=== PATIENT | male | born 1950 | race Caucasian/White ===

== ENCOUNTER → 2018-11-24 | Outpatient (CLI) | payer OTHER, SELFPAY ==
[2018-11-24 18:28] LABS: Amphetamine Urine VISTA NEGATIVE (<1000 ng/mL); Barbiturate Urine VISTA NEGATIVE (< 200 ng/mL); Benzodiazepine Urine VISTA NEGATIVE (< 200 ng/mL); Cocaine Urine VISTA NEGATIVE (< 300 ng/mL); Ecstacy Urine VISTA NEGATIVE (< 500 ng/mL); Methadone Urine VISTA NEGATIVE (< 300 ng/mL); PCP Urine VISTA NEGATIVE (< 25 ng/mL); THC Urine VISTA NEGATIVE (< 50 ng/mL); Vista UDS pH Range 5
== END | disposition home or self-care (01) ==
LOC: MTLAB 16:22
PROVIDERS: Family Provider Preventive Medicine Occupational Medicine; PCP Preventive Medicine Occupational Medicine; Referring Provider Internal Medicine Pulmonary Disease; Visit Provider Internal Medicine Pulmonary Disease
DX: G47.10 Hypersomnia, unspecified (principal)
CPT/HCPCS: 80307

== ENCOUNTER → 2018-12-17 | Outpatient (CLI) | payer OTHER, SELFPAY ==
[2018-12-17 18:12] LABS: Amphetamine Urine VISTA NEGATIVE (<1000 ng/mL); Barbiturate Urine VISTA NEGATIVE (< 200 ng/mL); Benzodiazepine Urine VISTA NEGATIVE (< 200 ng/mL); Cocaine Urine VISTA NEGATIVE (< 300 ng/mL); Ecstacy Urine VISTA NEGATIVE (< 500 ng/mL); Methadone Urine VISTA NEGATIVE (< 300 ng/mL); PCP Urine VISTA NEGATIVE (< 25 ng/mL); THC Urine VISTA NEGATIVE (< 50 ng/mL); Vista UDS pH Range 6
== END | disposition home or self-care (01) ==
PROVIDERS: Referring Provider Internal Medicine Pulmonary Disease; Visit Provider Internal Medicine Pulmonary Disease
DX: G47.33 Obstructive sleep apnea (adult) (pediatric) (principal); G47.12 Idiopathic hypersomnia without long sleep time
CPT/HCPCS: 80307

== ENCOUNTER 2020-06-29 12:42 | Day surgery (SDC) | payer OTHER, MEDICARE, SELFPAY ==
[2020-06-29] VITALS (8 sets, daily range): BP systolic 84–130; BP diastolic 63–84; PULSE 91–97; RESP 16–18; TEMP 36.3–36.6; O2SAT 94–97; BMI 27.8
[2020-06-29] MEDS: Lactated Ringers 1,000 ML 100 ML IV ×2 (12:45→14:52)
--- NOTE | 2020-06-29 13:00 | FOR_PTH ---
PATIENT: DMITRI [place]ENDERSON [place] [facility] [place][id number] AGE/SX: 70/M ROOM: RE06/29/[address]: Dr. Ryley Andrade MD : 1950 BED: DIS: 06/29/2020 SPEC #: [id number] RECD: 06/30/20 06:30 STATUS: BHANU GOLDSTEIN #: [id number] BENIGNO: 06/29/20 13:[address]: Ryley Andrade DEPT: SURGICAL PATHOLOGY RECD BY: Myranda Valderrama ENTERED: 06/30/20 08:33 SP TYPE: FORESKIN OTHR DR: Dr. Brandi Huddleston, DO Tissues: Skin of foreskin, NOS Procedures: Surgery Specimen Level III HEADER OPERATION: Circumcision PRE-OP DIAGNOSIS: Paraphimosis TISSUE SUBMITTED: Foreskin MICROSCOPIC DIAGNOSIS Foreskin, circumcision: Acute and chronic inflammation. No evidence of dysplasia. AM:raphael 07/03/2020 MICROSCOPIC DESCRIPTION Slides are reviewed. GROSS DESCRIPTION Received in fixative is one container labeled with the patient's name and designated foreskin. The specimen consists of a glistening fragment of palomino mucosa with attached submucosal tissue measuring 9 x 5.5 x 0.8 cm. No mass lesions are identified. Diagnostic Imaging Manager sections are submitted in one cassette. / AM:raphael 06/30/20 TC:2 CPT: 32667
[2020-06-29 13:30] LABS: Bedside Glucose 126 mg/dL (70-110)
[2020-06-29] MEDS: Cefazolin 2 GM in 0.9% Normal Saline 100 ML IV (13:43)
[2020-06-29] MEDS: Bupivacaine Mpf 0.5% 30 ML VIAL (13:53)
--- NOTE | 2020-06-29 14:33 | HP.PCM_ITS ---
HPI - General HPI Narrative DMITRI HENDERSON, is a 70 M who presents with paraphimosis and acute and not reducible either taken to the operating room today emergently for circumcision [facility] Medical History (Updated 06/29/20 @ 14:[address] Ryley Andrade MD) Diabetes Hypertension Sleep apnea Home Medications Jardiance 10 mg PO DAILY 06/29/20 [History Last Taken 06/29/20 09:00] atorvastatin 40 mg PO DAILY 06/29/20 [History Last Taken Unknown] cephalexin [Keflex] 750 mg PO BID #10 cap 06/29/20 [Rx Last Taken Unknown] glipizide 20 mg PO BID 06/29/20 [History Last Taken 06/29/20 09:00] lisinopril 20 mg PO DAILY 06/29/20 [History Last Taken 06/29/20 09:00] metformin 1,000 mg PO BID 06/29/20 [History Last Taken 06/29/20 09:00] metoprolol tartrate 12.5 mg PO BID 06/29/20 [History Last Taken 06/29/20 09:00] oxycodone-acetaminophen [Percocet] 1 tab PO Q6H PRN 7 Days #14 tab 06/29/20 [Rx Last Taken Unknown] Allergy/AdvReac Type Severity Reaction Status Date / Time No Known Allergies Allergy Verified 06/29/20 13:14 Social History Smoking Status: Never smoker Vital Signs Vital Signs Vital Signs: 06/29/20 13:20 06/29/20 13:23 Temperature 97.6 F L Temperature Source Temporal Pulse Rate 94 Respiratory Rate 16 Respiratory Pattern Normal Blood Pressure 126/74 H Blood Pressure Mean 91 Blood Pressure Source Monitor Blood Pressure Position Semi-Fowlers Blood Pressure Location Right Arm Pulse Ox 97 Oxygen Delivery Method Room Air Physical Exam Const alert and oriented x3 General Appearance: cooperative HEENT normocephalic, head/scalp atraumatic, EAC's normal and TM's normal bilaterally Eyes PERRL and EOMs intact bilaterally Pupil: sluggish Neck no lymphadenopathy, supple and no JVD General: trachea midline Lymph Lymphatic: no lymphadenopathy noted, lymphedema and lymphadenopathy Resp normal respiratory effort, normal air movement and clear to auscultation bilaterally Cardio regular rate, regular rhythm and peripheral pulses 2+ throughout GI soft to palpation, non-tender and non-distended Narrative: Paraphimosis swollen penis unreducible. Extremity normal capillary refill and no clubbing, cyanosis or edema General Extremity: no tenderness to palpation of joints or extremities Skin no rashes or lesions noted General Skin Exam: turgor normal Lesions: no lesions Rashes: no rashes Neuro CN's II-XII intact bilaterally Speech: speech normal Motor Exam: strength 5/5 throughout; Negative for general weakness Psych thought process normal, cooperative and affect normal Appearance: appropriate Lab / Micro Data Labs: Laboratory Results - last 24 hr 06/29/20 13:13 POC Glucose 126 H Micro: Microbiology 06/29/20 13:25 SARS-CoV-2 Antigen (Rapid) - Final Mucosa - Nose Assessment & Plan Assessment/Plan (1) Paraphimosis: PLAN: 2 OR today for reduction of paraphimosis or circumcision.
--- NOTE | 2020-06-29 14:34 | PCM.OPRPT ---
Report of Operation Date of Procedure: 06/29/20 Pre-Operative Diagnosis: Paraphimosis Post-Operative Diagnosis: Paraphimosis acute Surgery/Procedure Performed:: Circumcision Description of Surgical Findings:: 70-year-old male presented to my office as a work in referral for severely swollen penis he was found to have a paraphimosis I tried to reduce the paraphimosis my office was unsuccessful he had a spermatic phimosis for several weeks. So the patient was taken down to the operating room for attempted reduction of paraphimosis under anesthesia or circumcision. Patient I went anesthesia block was done on the penis he was prepped and draped in usual fashion, I tried to reduce the paraphimosis but it was so swollen and chronically swollen that it was a impossible to reduce therefore I then made a circumcision incision on the foreskin shaft and then made an incision subcoronal he all the way around and then I dissected off the foreskin off the penis the foreskin was all swollen. There was some area of necrosis on the dorsal aspect of the foreskin as well but fortunately was very minor area in the posterior aspect of the foreskin. I then had to do a reapproximation of the shaft skin to the foreskin I did decide to leave layers with a deeper layer and then a superficial layer and the skin all the way around for a 2 layer closure. After circumcision was completed then I placed dressing and wrap on the penis patient has had a reversed taken back to the PACU in good condition. Type of Anesthesia: MAC and Topical Anesth Drains: None Admit VTE Documentation VTE Present on Admission: No VTE Mechan Device Prophylaxis: SCD's
--- NOTE | 2020-06-29 14:36 | PCM.DC ---
Discharge Instructions Diet Discharge Diet: No restrictions Activity Discharge Activity: May not drive while taking narcotic pain medications. (for 3 days.) May shower in (days): 1 Dressing / Incision Call your doctor if your incision/area has: Continuous Slow Oozing, Increased Pain/ Swelling, Increased Redness and Foul Smelling Discharge Call your doctor if you observe: Fever of 101 or Higher, Numbness or Tingling, Shortness of breath, Dizziness, Calf discomfort and Uncontrolled pain Cleanse incision/area with: Keep Dressing Clean & Dry Follow Up Care Please Follow Up With: Ryley Andrade MD When: Call [phone] for an appointment Test Results: Test results from this visit will be discussed in further detail at your follow-up appointment, if applicable. Discharge Plan Admission Primary Reason for Your Visit: circumcision Attending Provider: Ryley Andrade Primary Care Provider: Brandi Huddleston Discharge Orders/Prescriptions Prescriptions: New cephalexin [Keflex] 750 mg capsule 750 mg PO BID Qty: 10 RF: 0 oxycodone-acetaminophen [Percocet] 5-325 mg tablet 1 tab PO Q6H PRN (Reason: pain) 7 Days Qty: 14 RF: 0 Continued atorvastatin 40 mg Tablet 40 mg PO DAILY RF: 0 lisinopril 20 mg Tablet 20 mg PO DAILY RF: 0 glipizide 10 mg Tablet 20 mg PO BID RF: 0 metformin 1,000 mg Tablet 1,000 mg PO BID RF: 0 metoprolol tartrate 25 mg Tablet 12.5 mg PO BID RF: 0 Jardiance 10 mg Tablet 10 mg PO DAILY RF: 0 Referrals / Follow Up: Brandi Huddleston DO [Primary Care Provider] - Disposition Discharge Orders: Discharge Patient (Routine); Ordered 06/29/20 Ordered By: Dr. Ryley Andrade
== END 2020-06-29 16:16 ==
LOC: SDC 12:51 → AC 12:53
PROVIDERS: Referring Provider Urology; Visit Provider Urology
PROC: (CPT 54161; principal; 2020-06-29 12:50)
DX: N47.2 Paraphimosis (principal); N48.29 Other inflammatory disorders of penis; E11.9 Type 2 diabetes mellitus without complications; I10 Essential (primary) hypertension; Z79.84 Long term (current) use of oral hypoglycemic drugs; Z79.899 Other long term (current) drug therapy
CPT/HCPCS: 00920; 54161; 82962; 87426; 88304; J7120

== ENCOUNTER → 2021-08-30 | Outpatient (CLI) | payer MEDICARE, OTHER, SELFPAY ==
[2021-08-30 14:44] LABS: PSA,Total- Diagnostic 1.45 ng/mL (0.0-4.0)
== END | disposition home or self-care (01) ==
PROVIDERS: Referring Provider Registered Nurse; Visit Provider Registered Nurse
DX: R97.20 Elevated prostate specific antigen [PSA] (principal)
CPT/HCPCS: 36415; 84153

== ENCOUNTER → 2022-10-10 | Outpatient (CLI) | payer MEDICARE, OTHER, SELFPAY ==
[2022-10-10 16:59] LABS: PSA,Total - Annual Screen 1.73 ng/mL (0.00-4.00)
== END | disposition home or self-care (01) ==
LOC: LAB 15:25
PROVIDERS: Referring Provider Urology; Visit Provider Urology
DX: Z12.5 Encounter for screening for malignant neoplasm of prostate (principal)
CPT/HCPCS: 36415; 84153; G0103